=== PATIENT | female | born 1935 | race Caucasian/White ===

== ENCOUNTER 2022-04-25 08:35 | Inpatient (IN) ==
[2022-04-25] MEDS ORDERED: ONDANSETRON 4 MG/2 ML VIAL IV STA (08:48)
[2022-04-25] MEDS ORDERED: SODIUM CHLORIDE 0.9% 500 ML IV STA (08:48)
[2022-04-25] MEDS ORDERED: DIPH/TET/ACEL PERT BOOSTER VACCINE 0.5 ML VIAL IM ONE (08:48)
[2022-04-25] MEDS ORDERED: HYDROmorphone 1 MG/1 ML SYRINGE IV STA (08:48)
[2022-04-25 08:56] LABS: Basophils % 0.7 % (0.0-0.8); Eosinophils % 0.7 % (0.00-10.9); Hematocrit 41.5 VOL% (35.7-47.0); Hemoglobin 13.7 GM/DL (12.0-16.0); Immature Granulocytes % 0.2 %; Immature Granulocytes Absolute 0.01 #; Lymphocytes # 0.8 10*3/uL (1.4-4.0); Mean Corpuscular Volume 93.5 FL (87-102); Mean Platelet Volume 10.4 FL (9.6-12.0); Monocytes # 0.4 10*3/uL (0.11-0.8); Monocytes % 8.9 % (1.7-12.7); Neutrophils % 70.5 % (38.7-73.9); Platelet Count 180 T/CUMM (130-400); Red Blood Count 4.44 MC/CUMM (3.8-5.5); Red Cell Distribution Width 14.4 % (9.3-17.3); White Blood Count 4.1 T/CUMM (4-12)
[2022-04-25 09:04] LABS: PT Patient Result 10.9 SECS (10.5-12.0); Partial Thromboplastin Time 25.6 SECS (23.7-32.9)
[2022-04-25 09:10] LABS: Albumin 3.6 G/DL (3.4-5.0); Bilirubin,Total 0.7 MG/DL (0.20-1.00); Calcium 10.1 MG/DL (8.5-10.1); Osmolality,Calculated 270.2 MOS/KG (273-304); Potassium 3.8 MMOL/L (3.5-5.1); Total Protein 7.1 G/DL (6.4-8.2)
[2022-04-25 09:39] LABS: Bacteria,Urine Occasional /HPF (Few); Bilirubin,Urine Negative (Negative); Blood, Urine Trace mg/dL (Negative); Glucose,Urine (UA) Negative (Negative); Ketones,Urine Negative (Negative); Nitrite,Urine Negative (Negative); Protein,Urine Negative (Negative); RBC,Urine 2 /HPF (0-4); Urine Appearance Clear (Clear); Urine Color Straw (Yellow); Urine Specific Gravity 1.015 (1.001-1.035)
[2022-04-25 09:40] LABS: Urine Urobilinogen 0.2 eU/dL (<2.0)
[2022-04-25] MEDS ORDERED: hydrALAZINE 20 MG/1 ML VIAL IV PRN (10:17)
[2022-04-25] MEDS ORDERED: GLUCAGON 1 MG VIAL IM PRN (10:19)
[2022-04-25] MEDS ORDERED: ONDANSETRON 4 MG/2 ML VIAL IV PRN (10:19)
[2022-04-25] MEDS ORDERED: DOCUSATE SODIUM 100 MG CAPSULE PO PRN (10:19)
[2022-04-25] MEDS ORDERED: ACETAMINOPHEN 325 MG TABLET PO PRN (10:19)
[2022-04-25] MEDS ORDERED: MORPHINE 2 MG/1 ML SYRINGE IV PRN (10:19)
[2022-04-25] MEDS: SODIUM CHLORIDE 0.9% 1,000 ML IV SCH (10:45)
[2022-04-25] MEDS ORDERED: DEXTROSE 10% 250 ML BAG IV PRN (11:09)
[2022-04-25] MEDS: INSULIN LISPRO 100 UNIT/ML SUBCUT SCH ×3 (11:35→20:40)
[2022-04-25] MEDS: LOSARTAN 25 MG TABLET PO SCH (11:42)
[2022-04-25] MEDS: ASPIRIN EC 81 MG TABLET PO SCH (20:40)
[2022-04-25] MEDS: DILTIAZEM CD 180 MG CAPSULE PO SCH (20:40)
[2022-04-26] MEDS: SODIUM CHLORIDE 0.9% 1,000 ML IV SCH (03:55)
[2022-04-26 04:42] LABS: Basophils # 0.1 10*3/uL (0.0-0.2); Basophils % 0.7 % (0.0-0.8); Eosinophils # 0.2 10*3/uL (0.0-0.87); Eosinophils % 2.5 % (0.00-10.9); Hematocrit 38.2 VOL% (35.7-47.0); Hemoglobin 12.6 GM/DL (12.0-16.0); Immature Granulocytes % 0.4 %; Immature Granulocytes Absolute 0.03 #; Lymphocytes # 0.6 10*3/uL (1.4-4.0); Lymphocytes % 7.8 % (21.3-54.2); Mean Corpuscular Volume 94.6 FL (87-102); Mean Platelet Volume 10.7 FL (9.6-12.0); Monocytes # 0.5 10*3/uL (0.11-0.8); Monocytes % 7.4 % (1.7-12.7); Neutrophils % 81.2 % (38.7-73.9); Platelet Count 144 T/CUMM (130-400); Red Blood Count 4.04 MC/CUMM (3.8-5.5); Red Cell Distribution Width 14.4 % (9.3-17.3); White Blood Count 7.1 T/CUMM (4-12)
[2022-04-26 05:04] LABS: Calcium 9.4 MG/DL (8.5-10.1); Osmolality,Calculated 265.5 MOS/KG (273-304); Potassium 3.9 MMOL/L (3.5-5.1)
[2022-04-26] MEDS: THYROID 60 MG TABLET PO SCH ×2 (05:30→17:33)
[2022-04-26] MEDS: COENZYME Q10 100 MG CAPSULE PO SCH (09:30)
[2022-04-26] MEDS: INSULIN LISPRO 100 UNIT/ML SUBCUT SCH ×4 (09:30→20:51)
[2022-04-26] MEDS: LOSARTAN 25 MG TABLET PO SCH (09:46)
[2022-04-26] MEDS: ASCORBIC ACID 500 MG TABLET PO SCH (09:54)
[2022-04-26] MEDS: CHOLECALCIFEROL 5,000 UNIT TABLET PO SCH (09:54)
[2022-04-26] MEDS ORDERED: ceFAZolin 2,000 MG/50 ML DUPLEX IV ONE (10:00)
[2022-04-26] MEDS ORDERED: LIDOCAINE 1% 5 ML VIAL ONE (12:18)
[2022-04-26] MEDS ORDERED: BUPIVACAINE MPF 0.25% 30 ML VIAL ONE (12:18)
[2022-04-26] MEDS ORDERED: DEXAMETHASONE 4 MG/1 ML VIAL ONE (12:18)
[2022-04-26] MEDS ORDERED: fentaNYL 100 MCG/2 ML VIAL ONE (12:25)
[2022-04-26] MEDS ORDERED: LACTATED RINGERS 1,000 ML IV SCH (12:30)
[2022-04-26] MEDS ORDERED: propofoL 200 MG/20 ML VIAL IV ONE (12:45)
[2022-04-26] MEDS ORDERED: ETOMIDATE 40 MG/20 ML VIAL IV ONE (12:45)
[2022-04-26] MEDS ORDERED: ROCURONIUM 50 MG/5 ML VIAL IV ONE (12:45)
[2022-04-26] MEDS ORDERED: LIDOCAINE 2% 5 ML VIAL ONE (12:48)
[2022-04-26] MEDS ORDERED: MAGNESIUM HYDROXIDE SUSP 30 ML UDCUP PO PRN (13:38)
[2022-04-26] MEDS ORDERED: TEMAZEPAM 7.5 MG CAPSULE PO PRN (13:39)
[2022-04-26] MEDS ORDERED: BISACODYL 10 MG SUPP RECTAL PRN (13:39)
[2022-04-26] MEDS ORDERED: diphenhydrAMINE CAP 25 MG CAPSULE PO PRN (13:39)
[2022-04-26] MEDS ORDERED: LACTULOSE 20 GM/30 ML UDCUP PO PRN (13:39)
[2022-04-26] MEDS ORDERED: MORPHINE 2 MG/1 ML SYRINGE IV PRN ×2 (13:43→13:51)
[2022-04-26] MEDS ORDERED: ePHEDrine 50 MG/ML VIAL ONE (13:58)
[2022-04-26] MEDS ORDERED: ACETAMINOPHEN INJ 1,000 MG/100 ML VIAL IV ONE (14:09)
[2022-04-26] MEDS ORDERED: LACTATED RINGERS 0 ML IV ONE (14:12)
[2022-04-26] MEDS ORDERED: SODIUM CHLORIDE 0.9% 1,000 ML IV ONE (14:13)
[2022-04-26] MEDS ORDERED: ONDANSETRON 4 MG/2 ML VIAL ONE (14:14)
[2022-04-26] MEDS ORDERED: GLYCOPYRROLATE 0.4 MG/2 ML VIAL ONE (14:16)
[2022-04-26] MEDS ORDERED: NEOSTIGMINE 10 MG/10 ML VIAL ONE (14:17)
[2022-04-26] MEDS ORDERED: SEVOFLURANE 1 UNIT/15 MINUTE INH ONE (14:41)
[2022-04-26] MEDS ORDERED: [UNRECOGNIZED DRUG - OTHER] PO SCH (15:00)
[2022-04-26] MEDS: DILTIAZEM CD 180 MG CAPSULE PO SCH (20:50)
[2022-04-26] MEDS: ASPIRIN EC 81 MG TABLET PO SCH (20:50)
[2022-04-27 04:43] LABS: Basophils % 0.1 % (0.0-0.8); Eosinophils % 0.2 % (0.00-10.9); Hematocrit 33.5 VOL% (35.7-47.0); Hemoglobin 10.8 GM/DL (12.0-16.0); Immature Granulocytes % 0.5 %; Immature Granulocytes Absolute 0.05 #; Lymphocytes # 0.6 10*3/uL (1.4-4.0); Lymphocytes % 5.9 % (21.3-54.2); Mean Corpuscular HGB Conc 32.2 GM/DL (32-36); Mean Corpuscular Volume 96.3 FL (87-102); Monocytes # 0.7 10*3/uL (0.11-0.8); Neutrophils % 85.3 % (38.7-73.9); Platelet Count 111 T/CUMM (130-400); Red Blood Count 3.48 MC/CUMM (3.8-5.5); Red Cell Distribution Width 14.4 % (9.3-17.3); White Blood Count 9.3 T/CUMM (4-12)
[2022-04-27 05:12] LABS: Calcium 9.2 MG/DL (8.5-10.1); Osmolality,Calculated 268.2 MOS/KG (273-304); Potassium 3.8 MMOL/L (3.5-5.1)
[2022-04-27] MEDS: THYROID 60 MG TABLET PO SCH ×2 (06:01→14:20)
[2022-04-27] MEDS: SODIUM CHLORIDE 0.9% 1,000 ML IV SCH ×2 (06:01→23:45)
[2022-04-27] MEDS: INSULIN LISPRO 100 UNIT/ML SUBCUT SCH ×4 (07:40→21:31)
[2022-04-27] MEDS: ASCORBIC ACID 500 MG TABLET PO SCH (08:56)
[2022-04-27] MEDS: LOSARTAN 25 MG TABLET PO SCH (08:56)
[2022-04-27] MEDS: COENZYME Q10 100 MG CAPSULE PO SCH (08:56)
[2022-04-27] MEDS: ATORVASTATIN 20 MG TABLET PO SCH (08:56)
[2022-04-27] MEDS: CHOLECALCIFEROL 5,000 UNIT TABLET PO SCH (08:57)
[2022-04-27] MEDS ORDERED: [UNRECOGNIZED DRUG - OTHER] PO SCH (09:00)
[2022-04-27] MEDS ORDERED: [UNRECOGNIZED DRUG - OTHER] PO SCH (09:00)
[2022-04-27] MEDS ORDERED: [UNRECOGNIZED DRUG - OTHER] PO SCH (09:00)
[2022-04-27] MEDS ORDERED: [UNRECOGNIZED DRUG - OTHER] PO SCH (09:00)
[2022-04-27] MEDS ORDERED: NON-FORMULARY MEDICATION (Glucosamine Sulfate [Glucosamine] 500 mg Tablet) PO SCH (09:00)
[2022-04-27] MEDS ORDERED: [UNRECOGNIZED DRUG - OTHER] PO SCH (09:00)
[2022-04-27] MEDS ORDERED: [UNRECOGNIZED DRUG - OTHER] PO SCH (09:00)
[2022-04-27] MEDS: APIXABAN 5 MG TABLET PO SCH ×2 (09:29→21:28)
[2022-04-27] MEDS: DILTIAZEM CD 180 MG CAPSULE PO SCH (21:28)
[2022-04-27] MEDS: ASPIRIN EC 81 MG TABLET PO SCH (21:28)
[2022-04-28 04:29] LABS: Basophils % 0.6 % (0.0-0.8); Eosinophils # 0.5 10*3/uL (0.0-0.87); Eosinophils % 7.4 % (0.00-10.9); Hematocrit 31.8 VOL% (35.7-47.0); Hemoglobin 10.4 GM/DL (12.0-16.0); Immature Granulocytes % 0.4 %; Immature Granulocytes Absolute 0.03 #; Mean Corpuscular HGB Conc 32.7 GM/DL (32-36); Mean Corpuscular Volume 95.5 FL (87-102); Mean Platelet Volume 10.8 FL (9.6-12.0); Monocytes # 0.9 10*3/uL (0.11-0.8); Monocytes % 12.3 % (1.7-12.7); Neutrophils % 64.3 % (38.7-73.9); Platelet Count 118 T/CUMM (130-400); Red Blood Count 3.33 MC/CUMM (3.8-5.5); Red Cell Distribution Width 14.6 % (9.3-17.3); White Blood Count 6.9 T/CUMM (4-12)
[2022-04-28 04:49] LABS: Calcium 9.3 MG/DL (8.5-10.1); Osmolality,Calculated 275.7 MOS/KG (273-304); Potassium 4.1 MMOL/L (3.5-5.1)
[2022-04-28] MEDS: THYROID 60 MG TABLET PO SCH (06:21)
[2022-04-28 08:08] VITALS: BP 119/57
[2022-04-28] MEDS: INSULIN LISPRO 100 UNIT/ML SUBCUT SCH (08:20)
[2022-04-28] MEDS: ASCORBIC ACID 500 MG TABLET PO SCH (09:16)
[2022-04-28] MEDS: COENZYME Q10 100 MG CAPSULE PO SCH (09:16)
[2022-04-28] MEDS: CHOLECALCIFEROL 5,000 UNIT TABLET PO SCH (09:16)
[2022-04-28] MEDS: APIXABAN 5 MG TABLET PO SCH (09:16)
[2022-04-28] MEDS: LOSARTAN 25 MG TABLET PO SCH (09:16)
[2022-04-28] MEDS: ATORVASTATIN 20 MG TABLET PO SCH (09:17)
== END 2022-04-28 11:45 | DRG 522 ==
LOC: N.ED 08:35 → SUATTDRO 10:19 → N.EDINP 10:19 → N.3E 16:33
PROVIDERS: ADMIT Internal Medicine; ATTEND Emergency Medicine